=== PATIENT | male | born 1985 | race Caucasian/White ===

== ENCOUNTER 2017-01-27 12:54 | Emergency (ER) | payer SELFPAY ==
[~2017-01-27] VITALS: Ht 177.8 cm; Wt 75.2 kg
[~2017-01-27 12:54] MED LIST: MELA1TAB6 PO; MELA1TAB7 PO; METH750T2 PO; NAPR-874 PO
[2017-01-27 14:18] VITALS: BP 120/57
== END 2017-01-27 15:09 | disposition home or self-care (01) ==
LOC: ED 13:36
DX: R10.32 Left lower quadrant pain (principal); S39.011A Strain of muscle, fascia and tendon of abdomen, initial encounter; X58.XXXA Exposure to other specified factors, initial encounter; Y93.89 Activity, other specified; Y92.89 Other specified places as the place of occurrence of the external cause; Y99.8 Other external cause status
CPT/HCPCS: 76857; 81003

== ENCOUNTER 2017-05-04 12:56 | Emergency (ER) | payer MEDICAID ==
[~2017-05-04] VITALS: Ht 177.8 cm; Wt 74.0 kg
[2017-05-04] MEDS ORDERED: SODIUM CHLORIDE FLUSH 10ML SYR IVF ONE (13:30)
[2017-05-04] MEDS ORDERED: SODIUM CHLORIDE 0.9% 1,000ML IVBOLUS ONE (13:30)
[2017-05-04 13:51] LABS: ASPARTATE AMINO TRANSFERASE 23 U/L (15-37); BLOOD UREA NITROGEN 13 mg/dL (7-18)
[2017-05-04 14:50] VITALS: BP 99/70
== END 2017-05-04 14:52 | disposition home or self-care (01) ==
LOC: ED 13:41
DX: E86.0 Dehydration (principal)
CPT/HCPCS: 36415; 80053; 81003; 83735; 85025; 96360; 99284; J7030

== ENCOUNTER 2017-05-11 18:30 | Emergency (ER) | payer MEDICAID ==
[~2017-05-11] VITALS: Ht 177.8 cm; Wt 73.6 kg
[2017-05-11 18:32] VITALS: BP 116/76
[2017-05-11] MEDS ORDERED: IBUPROFEN 800 MG TABLET PO STA (19:33)
[2017-05-11] MEDS ORDERED: IBUPROFEN 200 MG TABLET ONE (20:07)
== END 2017-05-11 20:14 | disposition home or self-care (01) ==
LOC: ED 20:00
DX: S93.401A Sprain of unspecified ligament of right ankle, initial encounter (principal); X50.1XXA Overexertion from prolonged static or awkward postures, initial encounter; Y93.89 Activity, other specified; Y99.0 Civilian activity done for income or pay; Y92.69 Other specified industrial and construction area as the place of occurrence of the external cause
CPT/HCPCS: 99284

== ENCOUNTER 2017-06-04 14:31 | Emergency (ER) | payer MEDICAID ==
[~2017-06-04] VITALS: Ht 180.3 cm; Wt 71.0 kg
[2017-06-04 14:41] VITALS: BP 106/70
[2017-06-04] MEDS ORDERED: DIPHENHYDRAMINE 50 MG/ML, 1ML ONE (15:25)
[2017-06-04] MEDS ORDERED: PROCHLORPERAZINE 5 MG/ML, 2ML ONE (15:25)
[2017-06-04] MEDS ORDERED: SODIUM CHLORIDE FLUSH 10ML SYR IVF ONE (15:30)
[2017-06-04] MEDS ORDERED: DIPHENHYDRAMINE 50 MG/ML, 1ML IVPush ONE (15:30)
[2017-06-04] MEDS ORDERED: SODIUM CHLORIDE 0.9% 1,000ML IVBOLUS ONE (15:30)
[2017-06-04] MEDS ORDERED: PROCHLORPERAZINE 5 MG/ML, 2ML IVPush ONE (15:30)
== END 2017-06-04 15:51 | disposition left against medical advice (07) ==
LOC: ED 15:00
DX: G44.52 New daily persistent headache (NDPH) (principal); F41.9 Anxiety disorder, unspecified
CPT/HCPCS: 70450; 99284

== ENCOUNTER 2017-12-15 07:59 | Observation (INO) | payer MEDICAID ==
[~2017-12-15] VITALS: Ht 180.3 cm; Wt 74.0 kg
[~2017-12-15 07:59] MED LIST changes: -NAPR-874 PO; +NAPR250T6 PO
[2017-12-15] MEDS ORDERED: LORazepam 1MG TABLET ONE (09:15)
[2017-12-15] MEDS ORDERED: LORazepam 1MG TABLET PO ONE (09:30)
[2017-12-15 10:00] LABS: BASOPHILS # (AUTO) 0.05 x10^3/uL (0-0.1); BASOPHILS % (AUTO) 0 % (0-1); EOSINOPHILS # (AUTO) 0.09 x10^3/uL (0-0.4); EOSINOPHILS % (AUTO) 1 % (1-7); LYMPHOCYTES # (AUTO) 1.31 x10^3/uL (1-3.4); LYMPHOCYTES % (AUTO) 11 % (22-44); MD NO; MEAN CORPUSCULAR HEMOGLOBIN 30.4 pg (27.5-34.5); MEAN CORPUSCULAR HGB CONC 33.3 g/dL (33.2-36.2); MEAN CORPUSCULAR VOLUME 91.3 fL (81-97); MEAN PLATELET VOLUME 8.3 fL (7.4-10.4); MONOCYTES # (AUTO) 0.92 x10^3/uL (0.2-0.8); MONOCYTES % (AUTO) 8 % (2-9); NEUTROPHILS # (AUTO) 9.68 x10^3/uL (1.8-6.8); NEUTROPHILS % (AUTO) 80 % (42-75); PLATELET COUNT 326 x10^3/uL (130-400); RED BLOOD COUNT 4.61 x10^6/uL (4.38-5.82); RED CELL DISTRIBUTION WIDTH 14.1 % (9.4-14.8)
[2017-12-15 10:12] LABS: ALANINE AMINOTRANSFERASE 31 U/L (12-78); ALBUMIN 3.8 g/dL (3.4-5.0); ANION GAP 6 mmol/L (5-15); CALCIUM 8.4 mg/dL (8.5-10.1); CHLORIDE 101 mmol/L (98-107); SALICYLATE LEVEL 2.6 mg/dL (2.8-20.0)
[2017-12-15 10:17] LABS: AMPHETAMINE SCREEN, URINE Negative (Negative); BARBITURATE SCREEN, URINE Negative (Negative); BENZODIAZEPINE SCREEN, URINE Negative (Negative); CANNABINOID SCREEN, URINE Negative (Negative); COCAINE SCREEN, URINE Negative (Negative); METHADONE SCREEN, URINE Negative (Negative); OPIATE SCREEN, URINE Negative (Negative)
[2017-12-15 10:21] LABS: ALKALINE PHOSPHATASE 89 U/L (45-117); BILIRUBIN,TOTAL 0.6 mg/dL (0.2-1.0); CREATININE 0.61 mg/dL (0.7-1.3); FREE T4 (FREE THYROXINE) 1.42 ng/dL (0.76-1.46); THYROID STIMULATING HORMONE 0.314 mIU/L (0.358-3.740); TOTAL PROTEIN 7.3 g/dL (6.4-8.2)
[2017-12-15 10:23] LABS: ACETAMINOPHEN < 2 mcg/mL (10-30)
[2017-12-15] MEDS ORDERED: LORazepam 2 MG/ML, 1ML IM PRN (15:30)
[2017-12-15] MEDS ORDERED: ACETAMINOPHEN 325 MG TABLET PO PRN (15:30)
[2017-12-15] MEDS ORDERED: ONDANSETRON ODT 4 MG PO PRN (15:30)
[2017-12-15] MEDS ORDERED: OLANZAPINE 5 MG TABLET PO ONE (16:00)
[2017-12-15] MEDS ORDERED: NICOTINE 21 MG/24 HR PATCH.TD24 ONE (18:47)
[2017-12-15 18:48] LABS: CULTURE INDICATED? YES; MICROSCOPIC INDICATED
[2017-12-15] MEDS: NICOTINE 21 MG/24 HR PATCH.TD24 TD SCH (18:52)
[2017-12-16 05:41] LABS: BASOPHILS # (AUTO) 0.07 x10^3/uL (0-0.1); BASOPHILS % (AUTO) 1 % (0-1); EOSINOPHILS # (AUTO) 0.32 x10^3/uL (0-0.4); EOSINOPHILS % (AUTO) 4 % (1-7); LYMPHOCYTES # (AUTO) 1.93 x10^3/uL (1-3.4); LYMPHOCYTES % (AUTO) 26 % (22-44); MD NO; MEAN CORPUSCULAR HEMOGLOBIN 30.6 pg (27.5-34.5); MEAN CORPUSCULAR HGB CONC 33.1 g/dL (33.2-36.2); MEAN CORPUSCULAR VOLUME 92.4 fL (81-97); MEAN PLATELET VOLUME 8.1 fL (7.4-10.4); MONOCYTES # (AUTO) 0.87 x10^3/uL (0.2-0.8); MONOCYTES % (AUTO) 12 % (2-9); NEUTROPHILS # (AUTO) 4.39 x10^3/uL (1.8-6.8); NEUTROPHILS % (AUTO) 58 % (42-75); PLATELET COUNT 337 x10^3/uL (130-400); RED BLOOD COUNT 4.94 x10^6/uL (4.38-5.82); RED CELL DISTRIBUTION WIDTH 14.3 % (9.4-14.8)
[2017-12-16] MEDS ORDERED: ASCO1TAB2 PO (08:11)
[2017-12-16] MEDS ORDERED: NICOTINE 21 MG/24 HR PATCH.TD24 ONE (18:28)
[2017-12-16] MEDS: NICOTINE 21 MG/24 HR PATCH.TD24 TD SCH (18:30)
[2017-12-16] MEDS ORDERED: OLANZAPINE 10 MG INJ IM PRN (19:30)
[2017-12-16] MEDS ORDERED: DOCUSATE 100 MG CAPSULE PO PRN (20:00)
[2017-12-16] MEDS ORDERED: DOCUSATE 100 MG CAPSULE ONE (20:26)
[2017-12-16] MEDS ORDERED: OLANZAPINE 5 MG TABLET PO SCH (21:00)
[2017-12-16] MEDS ORDERED: LORazepam 1MG TABLET ONE (21:41)
[2017-12-16] MEDS ORDERED: LORazepam 1MG TABLET PO PRN (22:00)
[2017-12-17 13:18] VITALS: BP 111/76
== END 2017-12-17 15:07 ==
LOC: ED 08:54 → EDIP 14:33 → OBSVTOIN 15:13 → INTOOBSV 15:13 → EDIP 12-17 06:10
PROVIDERS: ADMIT Hospitalist; ATTEND Internal Medicine
DX: F22 Delusional disorders (principal); F32.9 Major depressive disorder, single episode, unspecified; F12.90 Cannabis use, unspecified, uncomplicated; E03.9 Hypothyroidism, unspecified; F17.200 Nicotine dependence, unspecified, uncomplicated; Z80.0 Family history of malignant neoplasm of digestive organs; Z82.49 Family history of ischemic heart disease and other diseases of the circulatory system; F41.1 Generalized anxiety disorder
CPT/HCPCS: 36415; 71045; 80053; 80307; 80329; 81001; 84439; 84443; 85025; 87086; 99285; G0378; G0480

== ENCOUNTER 2021-02-28 18:41 | Emergency (ER) | payer MEDICAID ==
[~2021-02-28] VITALS: Ht 180.3 cm; Wt 101.0 kg
[~2021-02-28 18:41] MED LIST changes: +ASCO1TAB2 PO; +MELA1TAB46 PO; -MELA1TAB6 PO; +METH-640 PO; -METH750T2 PO; +NAPR-872 PO; -NAPR250T6 PO
[2021-02-28 18:47] VITALS: BP 147/94
--- NOTE | 2021-02-28 19:39 | NUR ---
PT AMBULATED TO ROOM FROM [facility]. PT CO LEFT EAR AND JAW PAIN. PT STATED HE WAS SEEN BY DOCTOR LAST FRIDAY AND WAS DIAGNOSED WITH INFECTED SALIVARY GLAND. PT WAS GIVEN ABX. PT STATED THAT PAIN WAS GETTING BETTER, BUT WAS WORSE TODAY. PT STATED THAT HE HAS STILL BEEN TAKING HIS ABX AND IBUPROFEN FOR PAIN. PT DENIES ANY FEVER OR SORE THROAT.
--- NOTE | 2021-02-28 19:56 | NUR ---
DISCHARGE INSTRUCTIONS REVIEWED WITH PT. ALL QUESTIONS ANSWERED AT THIS TIME
== END 2021-02-28 19:58 | disposition home or self-care (01) ==
LOC: ED 19:30
DX: K11.21 Acute sialoadenitis (principal); R68.84 Jaw pain
CPT/HCPCS: 99281

== ENCOUNTER 2021-04-15 14:38 | Emergency (ER) | payer MEDICAID ==
[~2021-04-15] VITALS: Ht 180.3 cm; Wt 102.2 kg
--- NOTE | 2021-04-15 14:50 | NUR ---
PT AMBULATORY TO ROOM FROM TRIAGE, PT CHANGED INTO GOWN. MONITORS IN PLACE. CALL LIGHT WITHIN REACH.
--- NOTE | 2021-04-15 14:55 | NUR ---
MED STUDENT AT BS
[2021-04-15 16:09] VITALS: BP 105/67
[2021-04-15 16:18] LABS: ALBUMIN 3.5 g/dL (3.4-5.0); ANION GAP 4 mmol/L (5-15); CALCIUM 8.9 mg/dL (8.5-10.1); CHLORIDE 109 mmol/L (98-107); CREATININE 0.82 mg/dL (0.7-1.3)
[2021-04-15] MEDS ORDERED: TRIAMCINOLONE OINT 0.5%, 15GM TP ONE (16:25)
[2021-04-15] MEDS ORDERED: FLUCONAZOLE 100 MG TABLET PO ONE (17:00)
[2021-04-15] MEDS ORDERED: NYSTATIN TOPICAL POWDER 15GM TP PRN (17:00)
[2021-04-15] MEDS ORDERED: FLUCONAZOLE 50 MG TABLET PO ONE (17:45)
--- NOTE | 2021-04-15 17:46 | NUR ---
Patient given discharge instructions and RX, they have confirmed that they understand the instructions. Patient ambulatory with steady gait.
== END 2021-04-15 17:47 | disposition home or self-care (01) ==
LOC: ED 16:31
DX: B35.6 Tinea cruris (principal)
CPT/HCPCS: 80048; 82040; 82962; 99284

== ENCOUNTER 2021-04-26 18:38 | Emergency (ER) | payer MEDICAID ==
[~2021-04-26] VITALS: Ht 180.3 cm; Wt 101.2 kg
[2021-04-26 20:54] VITALS: BP 132/90
--- NOTE | 2021-04-26 22:08 | NUR ---
PT SEEN IN TRIAGE BY .
== END 2021-04-26 22:18 | disposition home or self-care (01) ==
LOC: ED 22:12
DX: B35.6 Tinea cruris (principal); G89.29 Other chronic pain
CPT/HCPCS: 99283